=== PATIENT | female | born 1980 | race Hispanic/Latino ===

== ENCOUNTER 2023-01-12 08:15 | Outpatient (CLI) | payer BC ==
[2023-01-12] MEDS ORDERED: Iopamidol 300 61% 100 ML VIAL FS ONE (09:16)
== END 2023-01-12 08:16 | disposition home or self-care (01) ==
LOC: CSHCT 08:15
PROVIDERS: ATTEND Family Medicine
DX: R10.31 Right lower quadrant pain (principal)
CPT/HCPCS: 72194